=== PATIENT | male | born 1940 | race Caucasian/White ===

== ENCOUNTER → 2017-11-09 | Outpatient (CLI) | payer OTHER ==
[~2017-11-09] MED LIST: ASPIRIN EC81 M1; ASPIRIN EC81 M1 PO; AUGMENTIN 875-1 EACH PO; CARDIZEM; CARDIZEM CD120 MG PO; CIPRO500 MG PO; COLACE100 MG PO; COREG25 MG PO; FISH OIL 1,001000 M1 PO; FISHOIL; FLAGYL500 MG PO; HYDROCODONE-AP1 EAC6 PO; HYZAAR 50-12.51 TAB PO; L-LYSINE500 M1 PO; LISINOPRIL20 MG PO; MACUTAB; MEN'S MULTI-VI1 EACH PO; MOBIC15 MG PO; NORCO 7.5-3251 EACH PO; NORVASC 5 MG TAB5 MG; NORVASC 5 MG TAB5 MG PO; OMEPRAZOLE 20 M20 M1 PO; PACERONE 200 M200 M1 PO; PHENAZOPYRIDIN200 M2 PO; PRADAXA150 MG PO; PRADAXA75 MG PO; PRINIVIL20 MG; PROSCAR 5MG TABL5 M1; PROSCAR 5MG TABL5 M1 PO; RYTHMOL225 MG PO; TRAMADOL 50 MG50 MG PO; TRAVATAN Z2.5 ML OPHTHALMIC; TUMS PO; VOLTAREN GEL 1100 G1 TOP; XARELTO20 MG PO; ZOCOR 20 MG TAB20 M1; ZOCOR 20 MG TAB20 M1 PO; [UNRECOGNIZED DRUG - OTHER]; [UNRECOGNIZED DRUG - OTHER] PO; [UNRECOGNIZED DRUG - OTHER] PO
--- NOTE | 2017-11-09 12:05 | 2DMMODE ---
[place] [address] 2 D/M-MODE ECHOCARDIOGRAM Name: ANGELINA UGALDE Room: [facility]#: [id number] Admission: 11/09/17 Attend Phys: Andrew Parra, Discharge: Date of : 42 Date of Service: 11/09/17 1205 Report #: [id number] THIS REPORT FOR: //name// APPROVED REPORT Study performed: 11/09/2017 09:55:55 EXAM: Comprehensive 2D, Doppler, and color-flow Echocardiogram Patient Location: Out-Patient Status: routine BSA: 1.80 HR: 50 bpm BP: 148/80 mmHg Other Information Study Quality: Excellent Indications Atrial Fibrillation 2D Dimensions IVSd: 11.06 (7-11mm) LVOT Diam: 20.87 (18-24mm) LVDd: 54.70 mm PWd: 10.31 (7-11mm) Ascending Ao: 33.16 (22-36mm) LVDs: 32.63 (25-40mm) Aortic Root: 29.40 mm Volumes Left Atrial Volume (Systole) LA ESV Index: 31.90 mL/m2 Aortic Valve AoV Peak Roverto.: 1.16 m/s AO Peak Gr.: 5.39 mmHg LVOT Max P.56 mmHg AO Mean Gr.: 2.73 mmHg LVOT Mean P.91 mmHg LVOT Max V: 0.80 m/s AO V2 VTI: 27.75 cm LVOT Mean V: 0.42 m/s NAYELY (VTI): 2.48 cm2 LVOT V1 VTI: 20.15 cm Mitral Valve E/A Ratio: 1.32 MV Decel. Time: 211.34 ms MV E Max Roverto.: 0.84 m/s MV PHT: 61.29 [place] [address] 2 D/M-MODE ECHOCARDIOGRAM Name: ANGELINA UGALDE Room: [facility]#: [id number] Admission: 11/09/17 Attend Phys: Andrew Parra, Discharge: Date of : 42 Date of Service: 11/09/17 1205 Report #: [id number] MVA (PHT): 3.59 cm2 TDI E/Lateral E': 8.40 E/Medial E': 10.50 Medial E' Roverto.: 0.08 m/s Lateral E' Roverto.: 0.10 m/s Pulmonary Valve PV Peak Roverto.: 1.11 m/s PV Peak Gr.: 4.95 mmHg Tricuspid Valve TR Peak Gr.: 25.27 mmHg RVSP: 30.27 mmHg Left Ventricle The left ventricle is normal size. There is global hypokinesis of the left ventricle. There is normal left ventricular wall thickness. Left ventricular systolic function is mildly decreased. LVEF is 45-50%. The left ventricular diastolic function is normal. Right Ventricle The right ventricle is normal size. The right ventricular systolic function is normal. Atria Left atrium is mildly dilated. The right atrium size is normal. Aortic Valve The aortic valve is normal in structure. Trace aortic regurgitation. There is no aortic valvular stenosis. Mitral Valve The mitral valve is normal in structure. Mild mitral regurgitation. No evidence of mitral valve stenosis. Tricuspid Valve The tricuspid valve is normal in structure. Mild tricuspid regurgitation. The RVSP is __30.3 mmHg. Pulmonic Valve The pulmonary valve is normal in structure. Mild pulmonic regurgitation. Great Vessels The aortic root is normal in size. IVC is normal in size and collapses with >50% [place] [address] 2 D/M-MODE ECHOCARDIOGRAM Name: ANGELINA UGALDE Room: [facility]#: [id number] Admission: 11/09/17 Attend Phys: Andrew Parra, Discharge: Date of : 42 Date of Service: 11/09/17 1205 Report #: [id number] Pericardium There is no pericardial effusion. <Conclusion> LVEF is 45-50%. Left atrium is mildly dilated. Mild mitral regurgitation. Mild tricuspid regurgitation. The RVSP is __30.3 mmHg. <ELECTRONICALLY SIGNED> By: Chuy Hodgson MD, [facility] 11/09/171204 04 04 Chuy Hodgson MD, [facility] /INF
[2017-11-09 12:31] LABS: ALBUMIN 3.6 g/dL (3.4-5.0); DIRECT BILIRUBIN 0.3 mg/dL (<0.1-0.3); TOTAL BILIRUBIN 1.3 mg/dL (<0.1-1.0)
== END ==
LOC: M.CRD 09:00
PROVIDERS: Internal Medicine Cardiovascular Disease
DX: I08.1 Rheumatic disorders of both mitral and tricuspid valves (principal); I48.0 Paroxysmal atrial fibrillation; R05 Cough; Z79.899 Other long term (current) drug therapy

== ENCOUNTER 2018-01-21 22:11 | Emergency (ER) | payer OTHER ==
[~2018-01-21] VITALS: Ht 165.1 cm; Wt 75.3 kg
[~2018-01-21 22:11] MED LIST changes: -AUGMENTIN 875-1 EACH PO; -FLAGYL500 MG PO; -MACUTAB; -NORCO 7.5-3251 EACH PO; -OMEPRAZOLE 20 M20 M1 PO; -TUMS PO
[2018-01-21] MEDS ORDERED: MACUTAB (22:26)
[2018-01-21] MEDS ORDERED: TUMS PO (22:26)
[2018-01-21 22:50] LABS: HEMATOCRIT 44.3 % (42.0-52.0); HEMOGLOBIN 15.3 gm/dL (14.0-18.0); MCH 33.2 pg (26.0-34.0); MCHC 34.6 g/dL (28.0-37.0); MPV 9.7 fl. (7.2-11.1); NUCLEATED RBCS 0 /100WBC; PLATELET COUNT* 195 thou/uL (150-400); RBC 4.61 mil/uL (4.50-6.00); RDW-CV 13.8 % (10.5-14.5); WBC 14.5 thou/uL (4.0-11.0)
[2018-01-21 23:33] LABS: CALCIUM 9.4 mg/dL (8.5-10.1); CREATININE 0.9 mg/dL (0.6-1.3); POTASSIUM 3.4 mmol/L (3.5-5.1)
[2018-01-21 23:38] LABS: ALBUMIN 3.2 g/dL (3.4-5.0); TOTAL BILIRUBIN 0.7 mg/dL (<0.1-1.0); TOTAL PROTEIN 6.4 g/dL (6.4-8.2)
[2018-01-22 00:01] LABS: URINE BILIRUBIN NEGATIVE (Negative); URINE BLOOD TRACE (Negative); URINE CLARITY CLEAR; URINE COLOR YELLOW; URINE GLUCOSE-RANDOM NEGATIVE (Negative); URINE KETONES NEGATIVE (Negative); URINE LEUKOCYTES-REFLEX NEGATIVE (Negative); URINE NITRITE-REFLEX NEGATIVE (Negative); URINE PROTEIN NEGATIVE (Negative); URINE UROBILINOGEN 0.2 E.U./dl (0.2-1.0)
[2018-01-22 00:08] LABS: ABSOLUTE BASOPHILS 0.1 thou/uL (0.0-0.2); ABSOLUTE EOSINOPHILS 0.4 thou/uL (0.0-0.7); ABSOLUTE LYMPHOCYTES 1.9 thou/uL (0.8-5.3); ABSOLUTE MONOCYTES 1.2 thou/uL (0.0-1.2); ABSOLUTE NEUTROPHILS 10.9 thou/uL (1.6-8.1); PLATELET ESTIMATE ADEQUATE
[2018-01-22 00:09] LABS: ANISOCYTOSIS Occasional; LARGE PLATELETS OCCASIONAL
[2018-01-22] MEDS ORDERED: FLAGYL500 MG PO (02:05)
[2018-01-22] MEDS ORDERED: AUGMENTIN 875-1 EACH PO (02:05)
[2018-01-22] MEDS ORDERED: NORCO 7.5-3251 EACH PO (02:06)
[2018-01-22 02:18] VITALS: BP 147/79
[2018-02-10] MEDS ORDERED: OMEPRAZOLE 20 M20 M1 PO (07:16)
== END 2018-01-22 02:19 | disposition home or self-care (01) ==
LOC: M.ERS 22:11
PROVIDERS: Emergency Medicine
DX: K57.92 Diverticulitis of intestine, part unspecified, without perforation or abscess without bleeding (principal); I10 Essential (primary) hypertension; I48.91 Unspecified atrial fibrillation; Z88.5 Allergy status to narcotic agent

== ENCOUNTER → 2018-01-21 | Outpatient (CLI) | payer OTHER ==
[2018-01-21] VITALS (10 sets, daily range): BP systolic 99–171; BP diastolic 55–79
--- NOTE | 2018-01-21 11:49 | TEE ---
[place] [address] TRANSESOPHAGEAL ECHOCARDIOGRAM Name: ANGELINA UGALDE Room: [facility]#: [id number] Admission: 01/21/18 Attend Phys: Andrew Parra, Discharge: Date of : 42 Date of Service: 01/21/18 1149 Report #: [id number] THIS REPORT FOR: //name// APPROVED REPORT Study performed: 01/21/2018 10:23:39 EXAM: Transesophageal Echocardiogram Patient Location: Out-Patient Status: routine BSA: 1.83 HR: 51 bpm BP: 163/76 mmHg Rhythm: NSR Other Information Study Quality: Good Indications Atrial Fibrillation PRE-ABLATION Echo Enhancing Agent Indication: Rule out Shunt Agent(s) / Amount(s) Used: Agitated Saline 10 cc Procedure After obtaining informed consent, patient underwent transesophageal echo in the [facility]. Type of Sedation : Conscious Sedation Sedation was administered by Elizabeth Roman RN. Sedation start time: 1053 Case end Time: 1105 Sedation was achieved intravenously with: Versed (3) Fentanyl (75) Transesophageal probe was inserted and advanced into esophagus without difficulty by Andrew Parra MD, FACC. Echo enhancement indication: R/O Septal defect. Echo enhancement agent administered: Agitated Saline The EARNEST was performed without complications. Throughout the procedure, the blood pressure, pulse oximetry, cardiac rhythm, and rate were monitored. The patient tolerated the procedure without adverse effects. Recovery from conscious sedation was uneventful and vital signs were stable. [address] [address] TRANSESOPHAGEAL ECHOCARDIOGRAM Name: ANGELINA UGALDE [id number] Admission: 01/21/18 Attend Phys: Andrew Parra, Discharge: Date of : 42 Date of Service: 01/21/18 1149 Report #: [id number] Left Ventricle The left ventricle is normal size. There is normal LV segmental wall motion. There is normal left ventricular wall thickness. Left ventricular systolic function is normal. LVEF is 60-65%. Right Ventricle The right ventricle is normal size. The right ventricular systolic function is normal. Atria The left atrium size is normal. No thrombus is visualized in the left atrium or appendage. Injection of bubbles documented no interatrial shunt. The right atrium size is normal. Aortic Valve The aortic valve is normal in structure. No aortic regurgitation is present. There is no aortic valvular stenosis. Mitral Valve The mitral valve is normal in structure. Trace to mild mitral regurgitation. No evidence of mitral valve stenosis. Tricuspid Valve The tricuspid valve is normal in structure. There is no tricuspid valve regurgitation noted. Pulmonic Valve The pulmonary valve is normal in structure. There is no pulmonic valvular regurgitation. Great Vessels The aortic root is normal in size. Pericardium There is no pericardial effusion. <Conclusion> The left ventricle is normal size. There is normal left ventricular wall thickness. Left ventricular systolic function is normal. LVEF is 60-65%. The left atrium size is normal. No thrombus is visualized in the left atrium [place] [address] TRANSESOPHAGEAL ECHOCARDIOGRAM Name: ANGELINA UGALDE Room: [facility]#: [id number] Admission: 01/21/18 Attend Phys: Andrew Parra, Discharge: Date of : 42 Date of Service: 01/21/18 1149 Report #: [id number] Injection of bubbles documented no interatrial shunt. Trace to mild mitral regurgitation. <ELECTRONICALLY SIGNED> By: Andrew Parra MD, FACC 01/21/18 1149 1149 1149 Andrew Parra MD, FACC /INF
== END | disposition home or self-care (01) ==
LOC: M.CL 09:32
DX: I34.0 Nonrheumatic mitral (valve) insufficiency (principal); Z79.01 Long term (current) use of anticoagulants; Z88.6 Allergy status to analgesic agent; Z79.899 Other long term (current) drug therapy

== ENCOUNTER → 2018-02-18 | Outpatient (CLI) | payer OTHER ==
[~2018-02-18] MED LIST changes: +AUGMENTIN 875-1 EACH PO; +FLAGYL500 MG PO; +MACUTAB; +NORCO 7.5-3251 EACH PO; +OMEPRAZOLE 20 M20 M1 PO; +TUMS PO
== END ==
LOC: M.ULTRA 10:22
DX: E04.2 Nontoxic multinodular goiter (principal); I10 Essential (primary) hypertension; I48.91 Unspecified atrial fibrillation

== ENCOUNTER 2018-07-07 16:04 | Inpatient (IN) | payer OTHER ==
[~2018-07-07] VITALS: Ht 165.1 cm; Wt 74.4 kg
[~2018-07-07 16:04] MED LIST changes: +FISH OIL 1,0001 EAC1 PO; -FISH OIL 1,001000 M1 PO; -HYZAAR 50-12.51 TAB PO; +LOSARTAN-HCTZ1 EAC1 PO; -MEN'S MULTI-VI1 EACH PO; +MEN'S MULTIVIT1 EACH PO
[2018-07-07 16:14] VITALS: BP 191/89
[2018-07-07 16:39] LABS: HEMATOCRIT 47.6 % (42.0-52.0); HEMOGLOBIN 16.3 gm/dL (14.0-18.0); MCH 32.8 pg (26.0-34.0); MCHC 34.3 g/dL (28.0-37.0); MCV 95.4 fL (80.0-100.0); MPV 9.7 fl. (7.2-11.1); NUCLEATED RBCS 0 /100WBC; PLATELET COUNT* 216 thou/uL (150-400); RBC 4.99 mil/uL (4.50-6.00); RDW-CV 13.9 % (10.5-14.5); WBC 15.6 thou/uL (4.0-11.0)
[2018-07-07 16:45] LABS: ANION GAP 5 mmol/L (7-16); BUN 16 mg/dL (7-18); CALCIUM 10.7 mg/dL (8.5-10.1); CHLORIDE 102 mmol/L (98-107); CO2 31 mmol/L (21-32); GLUCOSE 102 mg/dL (70-99); POTASSIUM 3.9 mmol/L (3.5-5.1); SODIUM 138 mmol/L (136-145)
[2018-07-07 16:56] LABS: ALBUMIN 3.9 g/dL (3.4-5.0); ALKALINE PHOSPHATASE 71 U/L (46-116); NT-PRO BRAIN NAT PEPTIDE 181 pg/mL (<300); SGOT 40 U/L (15-37); SGPT 75 U/L (30-65); TOTAL BILIRUBIN 1.4 mg/dL (<0.1-1.0); TOTAL PROTEIN 7.6 g/dL (6.4-8.2); TROPONIN-I LEVEL <0.06 ng/mL (<0.06)
[2018-07-07 16:57] LABS: APTT 31.7 Seconds (25.0-31.3); INR 1.1; PROTIME 11.7 Seconds (9.20-11.50)
[2018-07-07 17:10] LABS: ABSOLUTE EOSINOPHILS 0.2 thou/uL (0.0-0.7); ABSOLUTE LYMPHOCYTES 1.2 thou/uL (0.8-5.3); ABSOLUTE MONOCYTES 1.4 thou/uL (0.0-1.2); ABSOLUTE NEUTROPHILS 12.8 thou/uL (1.6-8.1)
[2018-07-07 17:11] LABS: PLATELET ESTIMATE ADEQUATE
[2018-07-07 17:32] LABS: URINE BILIRUBIN NEGATIVE (Negative); URINE BLOOD TRACE (Negative); URINE CLARITY CLEAR; URINE COLOR YELLOW; URINE GLUCOSE-RANDOM NEGATIVE (Negative); URINE KETONES NEGATIVE (Negative); URINE LEUKOCYTES-REFLEX TRACE (Negative); URINE NITRITE-REFLEX NEGATIVE (Negative); URINE PROTEIN NEGATIVE (Negative); URINE UROBILINOGEN 0.2 E.U./dl (0.2-1.0)
[2018-07-07 17:47] LABS: MUCUS None Seen strn/LPF (None Seen); SQUAMOUS 0-3 Few /LPF (0-3)
[2018-07-07 17:48] LABS: CASTS None Seen /LPF (None Seen); CRYSTALS None Seen /LPF (None Seen); URINE RBC 0-2 Rare /HPF (0-2); URINE WBC-REFLEX 0-5 Rare /HPF (0-5)
[2018-07-07 17:49] LABS: BACTERIA-REFLEX None Seen /HPF (None Seen)
[2018-07-07 18:39] VITALS: BP 151/70
[2018-07-07 18:49] VITALS: BP 186/94
--- NOTE | 2018-07-07 19:19 | NUR ---
PATIENT ARRIVED TO FLOOR AT 1840. ALERT AND ORIENTED X 4. NO COMPLAINTS AT THIS TIME. REG DIET GIVEN. IV SL, FLUSHING WITHOUT DIFFICULTY. [address], VITALS CHARTED. ORIENTED TO CALL LIGHT. HOME MEDICATION REVIEWED WITH PATIENT. CALL LIGHT WITHIN REACH, WILL CONTINUE TO MONITOR.
[2018-07-07 19:45] VITALS: BP 160/80
[2018-07-08 00:05] VITALS: BP 108/65
[2018-07-08 04:32] LABS: HEMATOCRIT 44.5 % (42.0-52.0); HEMOGLOBIN 15.5 gm/dL (14.0-18.0); MCH 33.3 pg (26.0-34.0); MCHC 34.9 g/dL (28.0-37.0); MCV 95.5 fL (80.0-100.0); MPV 10.1 fl. (7.2-11.1); RBC 4.66 mil/uL (4.50-6.00); RDW-CV 13.8 % (10.5-14.5); WBC 8.2 thou/uL (4.0-11.0)
[2018-07-08 04:40] LABS: CALCIUM 10.3 mg/dL (8.5-10.1); CREATININE 1.1 mg/dL (0.6-1.3); MAGNESIUM 1.9 mg/dL (1.8-2.4)
[2018-07-08 05:30] VITALS: BP 143/76
--- NOTE | 2018-07-08 05:41 | NUR ---
PT HAS SLEPT WELL OVERNIGHT. O2 2L NC SAT 93%. RT TX AND SOLUMEDROL RECEIVED. USING URINAL TO VOID. TELE SR. LAC SL. AM LABS DRAWN. AOX4, ABLE TO USE CALL LITE AND MAKE NEEDS KNOWN. TYLENOL GIVEN FOR HEADACHE AT HS WITH GOOD RESULT.
[2018-07-08 08:10] VITALS: BP 148/75
--- NOTE | 2018-07-08 10:22 | EKG ---
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1940 Requested By: Lucio Muhammad Order Number: [id number] MD: Michel Yung Measurements Intervals [place] Rate: 61 P: 75 MS: 173 QRS: 55 QRSD: 99 T: 19 QT: 453 QTc: 457 Interpretive Statements Sinus rhythm Left ventricular hypertrophy Compared to ECG 11/23/2010 07:32:52 Sinus bradycardia no longer present Electronically Signed On 07-08-2018 10:22:05 APPLICATION SPEC by Michel Yung [email or web address] <ELECTRONICALLY SIGNED> By: Michel Yung MD, [facility] 07/08/18 1022 1616 1616 Michel Yung MD, [facility] /EPI
[2018-07-08 12:25] VITALS: BP 114/62
--- NOTE | 2018-07-08 13:11 | NUR ---
SW met with pt to complete initial assessment, introduce self, and SW role. Pt alert, oriented. Pt briefly discussed home situation where he lives at home with because he was speaking with his on his cell phone when SW entered pt room. Pt did not express any dc needs at this time; SW to continue to follow to assist with safe dc planning.
[2018-07-08 20:00] VITALS: BP 125/64
--- NOTE | 2018-07-08 20:22 | NUR ---
PATIENT RESTING IN BED. PATIENT IS UP AD PA IN ROOM. PATIENT IS SHORT OF AIR WITH EXERTION. OXYGEN ON AT 2L/NC. PRODUCTIVE COUGH, SPUTUM SENT TO LAB. PATIENT DENIES ANY PAIN. PATIENT HAS GOOD APPETITE. PATIENT DENIES ANY NEEDS AT THIS TIME. CALL LIGHT WITHIN REACH. WILL CONTINUE TO MONITOR.
[2018-07-09] VITALS: BP 141/71
[2018-07-09 03:54] VITALS: BP 144/71
--- NOTE | 2018-07-09 05:29 | NUR ---
ASSUMED CARE OF PT AT 1900 PT ALERT AND ORIENTED X4 VS AND ASSESSMENT STABLE. PT VOICED NO COMPLAINTS AND SLEPT THROUGH THE NIGHT. WILL CONTINUE PLAN OF CARE.
[2018-07-09 08:00] VITALS: BP 123/69
[2018-07-09] MEDS ORDERED: VENTOLIN HFA 1818 GM INH (11:23)
[2018-07-09] MEDS ORDERED: PREDNISONE 10 M10 M1 PO (11:25)
[2018-07-09] MEDS ORDERED: AUGMENTIN 875-1 EACH PO (11:26)
[2018-07-09 12:04] VITALS: BP 123/69
--- NOTE | 2018-07-09 14:00 | NUR ---
Patient discharged to home. Discharge papers reviewed and signed. Prescriptions called to pharmacy, information sheets given. IV removed. Patient denies any further need. Patient taken by wheelchair to exit. Left with .
[2018-07-09 14:08] LABS: CALCIUM 9.9 mg/dL (8.5-10.1); PHOSPHORUS* 2.5 mg/dL (2.5-4.9)
== END 2018-07-09 14:00 | disposition home or self-care (01) | DRG 189 ==
LOC: M.ERS 16:04 → M.TBA-ER 17:43 → M.ERS 17:43 → M.3W 17:43 → M.TBA-ER 18:32 → M.3W 18:32
PROVIDERS: Family Medicine; ADMIT Internal Medicine
DX: J96.01 Acute respiratory failure with hypoxia (principal); R65.11 Systemic inflammatory response syndrome (SIRS) of non-infectious origin with acute organ dysfunction; J44.0 Chronic obstructive pulmonary disease with (acute) lower respiratory infection; N17.9 Acute kidney failure, unspecified; J44.1 Chronic obstructive pulmonary disease with (acute) exacerbation; I10 Essential (primary) hypertension; I48.91 Unspecified atrial fibrillation; E78.00 Pure hypercholesterolemia, unspecified; J20.9 Acute bronchitis, unspecified; E83.52 Hypercalcemia; Z98.42 Cataract extraction status, left eye; Z98.41 Cataract extraction status, right eye; Z88.6 Allergy status to analgesic agent; Z87.891 Personal history of nicotine dependence

== ENCOUNTER → 2019-03-14 | Outpatient (CLI) | payer OTHER ==
[~2019-03-14] MED LIST changes: +PREDNISONE 10 M10 M1 PO; +VENTOLIN HFA 1818 GM INH
--- NOTE | 2019-03-15 15:04 | EKG ---
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1940 Requested By: Chuy Conti Order Number: [id number] Reading : Pee Joyce Measurements Intervals [place] Rate: 71 P: CO: QRS: 63 QRSD: 91 T: 255 QT: 327 QTc: 356 Interpretive Statements Atrial fibrillation LVH with secondary repolarization abnormality Compared to ECG 07/07/2018 16:16:49 Early repolarization now present Sinus rhythm no longer present Electronically Signed On 03-15-2019 15:03:52 CDT by Pee Joyce [email or web address] <ELECTRONICALLY SIGNED> By: Pee Joyce MD, [facility] 03/15/19 1503 D: [id number] 11 Pee Joyce MD, FACC /EPI
== END ==
LOC: M.CRD 14:51
DX: Z01.818 Encounter for other preprocedural examination (principal); N40.1 Benign prostatic hyperplasia with lower urinary tract symptoms; N13.8 Other obstructive and reflux uropathy; I48.91 Unspecified atrial fibrillation